=== PATIENT | male | born 1975 | race Caucasian/White ===

== ENCOUNTER → 2016-07-10 | Outpatient (CLI) | payer MEDICAID ==
[2016-07-10 09:15] LABS: HEMATOCRIT 45.6 % (37.9-51.0); HEMOGLOBIN 15.2 g/dL (13.5-17.0); MEAN CORPUSCULAR HEMOGLOBIN 26.9 pg (27.0-33.4); MEAN CORPUSCULAR HGB CONC 33.4 g/dL (32.0-36.0); MEAN CORPUSCULAR VOLUME 81 fl (80-97); RED BLOOD COUNT 5.65 10^6/uL (4.35-5.55); RED CELL DISTRIBUTION WIDTH 14.7 % (11.5-14.0); WHITE BLOOD COUNT 7.8 10^3/uL (4.0-10.5)
[2016-07-10 09:39] LABS: ALANINE AMINOTRANSFERASE 43 U/L (21-72); ALBUMIN 4.7 g/dL (3.5-5.0); ALKALINE PHOSPHATASE 79 U/L (38-126); ASPARTATE AMINO TRANSFERASE 21 U/L (17-59); BILIRUBIN,TOTAL 0.8 mg/dL (0.2-1.3); CHOLESTEROL 254.18 mg/dL (0-200); Direct HDL 51 mg/dL (>40); MAGNESIUM 2.2 mg/dL (1.6-2.3); TOTAL PROTEIN 7.6 g/dL (6.3-8.2); TRIGLYCERIDES 158 mg/dL (<150)
[2016-07-10 09:44] LABS: ANION GAP 15 (5-19); BLOOD UREA NITROGEN 14 mg/dL (7-20); CARBON DIOXIDE 26 mmol/L (22-30); CHLORIDE 101 mmol/L (98-107); CREATININE RESULT 1.02 mg/dL (0.52-1.25); GLUCOSE 84 mg/dL (75-110); POTASSIUM 4.3 mmol/L (3.6-5.0); SODIUM 141.9 mmol/L (137-145)
[2016-07-10 09:51] LABS: DIRECT LDL 183 mg/dL (<100)
[2016-07-10 09:55] LABS: VLDL CHOLESTEROL 31.6 mg/dL (10-31)
== END ==
LOC: OD 08:15
PROVIDERS: ATTEND Internal Medicine Cardiovascular Disease
DX: I48.0 Paroxysmal atrial fibrillation (principal); R00.2 Palpitations; E66.9 Obesity, unspecified; Z79.899 Other long term (current) drug therapy
CPT/HCPCS: 36415; 80048; 80061; 80076; 83036; 83735; 84443; 85027

== ENCOUNTER → 2016-12-24 | Outpatient (CLI) | payer MEDICAID ==
--- NOTE | 2016-12-26 08:34 | RADIOLOGY REPORT ---
STRESS TEST REPORT [id number] ROOM#: DATE OF SERVICE: 12/24/2016 AGE: 41Y ORDER#: [id number] REFERRING MD: DANIELLA GUZMAN M.D. INDICATION: Paroxysmal atrial fibrillation, abnormal EKG treadmill stress test. CLINICAL HISTORY: This 41-year-old male patient with no known coronary artery disease but has history of paroxysmal atrial fibrillation and recent abnormal EKG stress test with cardiac risk factors and hypertension. Currently symptomatology includes palpitations. PROCEDURE PERFORMED: Rest/stress single-isotope Cardiolite SPECT imaging with exercise stress and gated SPECT imaging. REPORT The patient performed 10 minutes of exercise using a standard Markie protocol completing 8 minutes and an estimated work load of 9 METs. The resting heart rate was almost 70 BPM and maximum achieved heart rate was 150 BPM. Resting blood pressure was 127/76 and blood pressure at peak exercise was 204/58. Resting 12-lead EKG showed normal sinus rhythm 73 BPM, IVCD, normal ST segments. A 12-lead EKG showed no ST depressions. The patient had no symptoms of shortness of breath, but no chest pains. Myocardial perfusion imaging was performed at rest 60 minutes following injection of 15.47 mCi of Cardiolite. At peak exercise, the patient was injected with 45.2 mCi of Cardiolite and exercise continued for 1 more minute. Gated post-stress tomographic imaging was performed 60 minutes after stress. FINDINGS: The overall quality of the study is fair. This is due to extra cardiac uptake in the left lobe of the liver superimposed on the inferior wall of the left ventricle only on the rest images. The left ventricular cavity is noted to be normal in both the rest and stress studies. There is no evidence of abnormal transient ischemic dilatation of the left ventricle. The TID ratio was 0.93 and normal. SPECT images showed no evidence of exercise-induced reversible ischemia and no fixed perfusion defects. Gated SPECT imaging showed normal motion contraction of all LV segments. The left ventricular ejection fraction is calculated to be 53%. IMPRESSION: Myocardial perfusion imaging is normal. There is no exercise-induced paroxysmal atrial fibrillation or nonsustained ventricular tachycardia, only rare PVCs were seen during exercise at peak exercise. There is no reversible ischemia and no fixed perfusion defects. Overall left ventricular systolic function was normal with EF at 53%. No regional wall motion abnormalities seen. No prior study for comparison. INTERPRETING PHYSICIAN: DANIELLA GUZMAN M.D. /: [id number] TT: 0226 ID: [id number] /: [id number] TD: [id number] JOB: [id number] cc:DANIELLA GUZMAN M.D. > MTDD
== END ==
LOC: RAD 06:05
PROVIDERS: ATTEND Internal Medicine Cardiovascular Disease
DX: R00.2 Palpitations (principal)
CPT/HCPCS: 93017; 78452; A9500; Q9969

== ENCOUNTER 2017-02-08 01:26 | Emergency (ER) | payer MEDICAID ==
[2017-02-08 01:45] VITALS: BP 143/83
--- NOTE | 2017-02-08 09:49 | EKG REPORT ---
SEVERITY:- NORMAL ECG - SINUS RHYTHM NON PROGRESSION OF R WAVE ANT CHEST LEADS : Confirmed by: Drea Fitch 08-Feb-2017 09:49:11
== END 2017-02-08 01:50 | disposition left against medical advice (07) ==
LOC: ER 01:26
DX: Z53.9 Procedure and treatment not carried out, unspecified reason (principal); R07.9 Chest pain, unspecified
CPT/HCPCS: 93005; 93010

== ENCOUNTER 2017-05-06 23:21 | Emergency (ER) | payer MEDICAID ==
[2017-05-06] MEDS ORDERED: DILTIAZEM HCL/D5W 125 MG/125 ML RTUINJ IV PRN (23:51)
[2017-05-06] MEDS ORDERED: DILTIAZEM HCL INJ 25 MG/5 ML VIAL IV ONE (23:51)
--- NOTE | 2017-05-06 23:56 | ER Document Report ---
ED General - General Chief Complaint: Palpitations Stated Complaint: CHEST PAIN Time Seen by Provider: 05/06/17 23:51 Notes: Patient is a 42-year-old male who presents with complaint of onset of atrial fibrillation. He has had intermittent atrial fibrillation since he was teenager. He is not on any blood thinning medications. He is followed by Dr. Stratton. He did not denies any true chest pain. He says he has just slight tightness because his heart is moving fast. No history of coronary disease. His negative stress test this year. No fevers. No vomiting. No diarrhea. No other complaints at this time. No recent changes in medications. He took his lisinopril and Cardizem shortly before coming into the ER. He felt his heart racing just over an hour ago. TRAVEL OUTSIDE OF THE [place] IN LAST 30 DAYS: No Past Medical History - Social History Smoking Status: Never Smoker Frequency of alcohol use: None Drug Abuse: None Family History: Reviewed & Not Pertinent Renal/ Medical History: Denies: Hx Peritoneal Dialysis Review of Systems - Review of Systems Notes: My Normal Review Basic REVIEW OF SYSTEMS: CONSTITUTIONAL : Denies fever, chills, or sweats. Denies recent illness. EENT: Denies eye, ear, throat, or mouth pain or symptoms. Denies nasal or sinus congestion. CARDIOVASCULAR: atrial fibrillation RESPIRATORY: Denies cough, cold, or chest congestion. Denies shortness of breath, difficulty breathing, or wheezing. GASTROINTESTINAL: Denies abdominal pain. Denies nausea, vomiting, or diarrhea. Denies constipation. Last BM: GENITOURINARY: Denies difficulty urinating, painful urination, burning, frequency, or blood in urine. MUSCULOSKELETAL: Denies neck or back pain or joint pain or swelling. SKIN: Denies rash or skin lesions. NEUROLOGICAL: Denies altered mental status or loss of consciousness. Denies headache. Denies weakness or paralysis or loss of use of either side. Denies problems with gait or speech. Denies sensory or motor loss. ALL OTHER SYSTEMS REVIEWED AND NEGATIVE. Physical Exam - Vital signs Vitals: Temp Resp BP 99.1 F 20 182/117 H 05/06/17 23:46 05/06/17 23:46 05/06/17 23:46 - Notes Notes: General Appearance: Well nourished, alert, cooperative, no acute distress, no obvious discomfort. Well-appearing Vitals: reviewed, See vital signs table. Head: no swelling or tenderness to the head Eyes: PERRL, EOMI, Conjuctiva clear Mouth: No decreasd moisture Lungs: No wheezing, No rales, No rhonci, No accessory muscle use, good air exchange bilaterally. Heart: Rapid rate, Irregular rythm, No murmur, no rub Abdomen: Normal BS, soft, No rigidity, No abdominal tenderness, No guarding, no rebound, no abdominal masses, no organomegaly Extremities: strength 5/5 in all extremities, good pulses in all extremities, no swelling or tenderness in the extremities, no edema. Skin: warm, dry, appropriate color, no rash Neuro: speech clear, oriented x 3, normal affect, responds appropriately to questions. Course - Re-evaluation Re-evalutation: 05/07/17 01:56 EKG #1 is reviewed and interpreted by me. EKG shows atrial fibrillation with rate of [address] segment elevation or depression. No ischemic T-wave inversions. Pure interval, QRS duration, QTc intervals are within normal range. Old EKG for comparison is from February 08, 2017. EKG #2 is reviewed and interpreted by me. EKG shows normal sinus rhythm with rate of [address] segment elevation or depression. No ischemic T-wave inversions. Pure interval, QRS duration, QTc intervals are within normal range. 05/07/17 02:02 Patient's atrial fibrillation resolved with the Cardizem bolus. Drip was stopped. Patient was watched for another hour. He had no recurrence of atrial fibrillation. He has no chest pain and looks well. Laboratory evaluation is unremarkable. Patient feels well and looks well. Patient will be discharged home. Has no signs of stroke. No focal neurologic deficits. Dictation of this chart was performed using voice recognition software; therefore, there may be some unintended grammatical errors. - Vital Signs Vital signs: Temp Pulse Resp BP Pulse Ox 99.1 F 20 182/117 H 05/06/17 23:46 05/06/17 23:46 05/06/17 23:46 - Laboratory Result Diagrams: 05/07/17 00:04 05/07/17 00:04 Laboratory results interpreted by me: 05/07/17 05/07/17 05/07/17 00:04 00:04 00:04 RBC 5.61 H RDW 14.7 H Glucose 139 H Calcium 10.6 H TSH 4.70 H Discharge - Discharge Clinical Impression: Atrial fibrillation Qualifiers: Atrial fibrillation type: paroxysmal Qualified Code(s): I48.0 - Paroxysmal atrial fibrillation Condition: Good Disposition: HOME, SELF-CARE Additional Instructions: Your atrial fibrillation is resolved. Please take medications as prescribed. Please avoid all caffeinated beverages. Return to the ER immediately if you have chest pain, difficulty breathing, rapid heart rate, or feel unwell. Dictation of this chart was performed using voice recognition software; therefore, there may be some unintended grammatical errors.
[2017-05-07 00:22] LABS: ABSOLUTE BASOPHILS # (AUTO) 0.1 10^3/uL (0.0-0.2); ABSOLUTE EOSINOPHILS # (AUTO) 0.3 10^3/uL (0.0-0.6); ABSOLUTE LYMPHOCYTES (AUTO) 3.7 10^3/uL (0.5-4.7); ABSOLUTE MONOCYTES (AUTO) 0.5 10^3/uL (0.1-1.4); ABSOLUTE NEUT (AUTO) 5.6 10^3/uL (1.7-8.2); BASOPHILS % (AUTO) 0.6 % (0-2); EOSINOPHILS % (AUTO) 2.6 % (0-6); HEMATOCRIT 46.1 % (37.9-51.0); HEMOGLOBIN 15.6 g/dL (13.5-17.0); LYMPHOCYTES % (AUTO) 36.7 % (13-45); MEAN CORPUSCULAR HEMOGLOBIN 27.8 pg (27.0-33.4); MEAN CORPUSCULAR HGB CONC 33.8 g/dL (32.0-36.0); MEAN CORPUSCULAR VOLUME 82 fl (80-97); MONOCYTES % (AUTO) 4.9 % (3-13); PLATELET COUNT 338 10^3/uL (150-450); RED BLOOD COUNT 5.61 10^6/uL (4.35-5.55); RED CELL DISTRIBUTION WIDTH 14.7 % (11.5-14.0); SEGMENTED NEUTROPHILS % (AUTO) 55.2 % (42-78); TOTAL CELLS COUNTED % (AUTO) 100 %; WHITE BLOOD COUNT 10.1 10^3/uL (4.0-10.5)
[2017-05-07 00:36] LABS: ALANINE AMINOTRANSFERASE 36 U/L (21-72); ALBUMIN 4.7 g/dL (3.5-5.0); ALKALINE PHOSPHATASE 86 U/L (38-126); ANION GAP 15 (5-19); ASPARTATE AMINO TRANSFERASE 23 U/L (17-59); BILIRUBIN,DIRECT 0.3 mg/dL (0.0-0.4); BILIRUBIN,TOTAL 0.3 mg/dL (0.2-1.3); BLOOD UREA NITROGEN 19 mg/dL (7-20); CALCIUM 10.6 mg/dL (8.4-10.2); CARBON DIOXIDE 25 mmol/L (22-30); CHLORIDE 103 mmol/L (98-107); GLUCOSE 139 mg/dL (75-110); POTASSIUM 4.1 mmol/L (3.6-5.0); SODIUM 142.6 mmol/L (137-145); TOTAL PROTEIN 7.8 g/dL (6.3-8.2)
--- NOTE | 2017-05-07 01:00 | RADIOLOGY REPORT (SQ) ---
EXAM DESCRIPTION: CHEST SINGLE VIEW CLINICAL HISTORY: a.fib COMPARISON: None. FINDINGS: Single frontal view of the chest. The cardiomediastinal silhouette has normal size and contour. No consolidation, pneumothorax, or pleural effusion. No displaced rib fractures identified. Upper abdominal soft tissues are unremarkable. Leads overlie the chest. IMPRESSION: 1. No acute pulmonary process identified.
[2017-05-07 02:07] VITALS: BP 133/82
--- NOTE | 2017-05-08 07:57 | EKG REPORT ---
SEVERITY:- NORMAL ECG - SINUS RHYTHM : Confirmed by: Etta Santiago MD 08-May-2017 07:55:36
--- NOTE | 2017-05-08 07:57 | EKG REPORT ---
SEVERITY:- ABNORMAL ECG - SINUS TACHYCARDIA LEFT AXIS DEVIATION BORDERLINE ST DEPRESSION, DIFFUSE LEADS BORDERLINE PROLONGED QT INTERVAL : Confirmed by: Etta Santiago MD 08-May-2017 07:55:41
== END 2017-05-07 02:12 | disposition home or self-care (01) ==
LOC: ER 23:21
DX: I48.0 Paroxysmal atrial fibrillation (principal); R00.2 Palpitations; R07.9 Chest pain, unspecified
CPT/HCPCS: 93005 ×2; 96376; 99285; 96374; 36415; 83735; 84443; 85025; 80053; 84484; 71010; 93010 ×2; J3490 ×2

== ENCOUNTER 2017-09-18 20:36 | Emergency (ER) | payer MEDICAID ==
[2017-09-18] MEDS ORDERED: ASPIRIN 81 MG TABLET, CHEWABLE PO ONE (20:40)
--- NOTE | 2017-09-18 21:03 | ER Document Report ---
ED Medical Screen (RME) - General Chief Complaint: Chest Pain Stated Complaint: CHEST PAIN Time Seen by Provider: 09/18/17 21:02 Notes: Patient is a 42-year-old male, past medical history paroxysmal atrial fibrillation, presents after he felt extra beats and that his heart was racing again. Takes metoprolol and lisinopril. No blood thinners. PE: Regular rhythm. NAD. CTAB I have greeted and performed a rapid initial assessment of this patient. A comprehensive ED assessment and evaluation of the patient, analysis of test results and completion of the medical decision making process will be conducted by additional ED providers. TRAVEL OUTSIDE OF THE [place] IN LAST 30 DAYS: No - Related Data Allergies/Adverse Reactions: oxycodone Allergy (Verified 09/18/17 20:38) Past Medical History - Social History Chew tobacco use (# tins/day): No Frequency of alcohol use: Rare Drug Abuse: None - Past Medical History Cardiac Medical History: Reports: Hx Atrial Fibrillation, Hx Hypertension Renal/ Medical History: Denies: Hx Peritoneal Dialysis
--- NOTE | 2017-09-18 21:49 | RADIOLOGY REPORT (SQ) ---
EXAM DESCRIPTION: CHEST SINGLE VIEW COMPLETED DATE/TIME: 09/18/2017 9:25 pm REASON FOR STUDY: chest pain COMPARISON: 05/07/2017 EXAM PARAMETERS: NUMBER OF VIEWS: One view. TECHNIQUE: Single frontal radiographic view of the chest acquired. RADIATION DOSE: NA LIMITATIONS: None. FINDINGS: LUNGS AND PLEURA: No opacities, masses or pneumothorax. No pleural effusion. MEDIASTINUM AND HILAR STRUCTURES: No masses. Contour normal. HEART AND VASCULAR STRUCTURES: Heart normal in size. Normal vasculature. BONES: No acute findings. HARDWARE: None in the chest. OTHER: No other significant finding. IMPRESSION: NO ACUTE RADIOGRAPHIC FINDING IN THE CHEST. TECHNICAL DOCUMENTATION: JOB ID: [id number] [employer]- All Rights Reserved Reading location - IP/workstation name: [email or web address]
--- NOTE | 2017-09-18 22:09 | ER Document Report ---
ED General - General Chief Complaint: Chest Pain Stated Complaint: CHEST PAIN Time Seen by Provider: 09/18/17 21:02 Notes: Patient is a pleasant 42-year-old male who presents with complaint of feeling that he was in atrial fibrillation. He says after he arrived to the ER he felt to go away. Has not had any recurrence of A. fib since then. He says he had some very mild chest pain which she always has whenever he goes into atrial fibrillation. He has had proximal A. fib since he was a teenager. He is followed by sustainability officer, Dr. Stratton. He is currently not on blood thinning medications as he says his sustainability officer has told him based on his age and risk factors the benefits do not outweigh the risk. He currently feels well and is requesting not any further workup and wants to leave. Denies any recent changes in medications. He denies any recent illnesses. TRAVEL OUTSIDE OF THE [place] IN LAST 30 DAYS: No - Related Data Allergies/Adverse Reactions: oxycodone Allergy (Verified 09/18/17 20:38) Past Medical History - Social History Smoking Status: Former Smoker Chew tobacco use (# tins/day): No Frequency of alcohol use: Rare Drug Abuse: None Family History: Reviewed & Not Pertinent Patient has suicidal ideation: No Patient has homicidal ideation: No - Past Medical History Cardiac Medical History: Reports: Hx Atrial Fibrillation, Hx Hypertension Renal/ Medical History: Denies: Hx Peritoneal Dialysis Review of Systems - Review of Systems Notes: My Normal Review Basic REVIEW OF SYSTEMS: CONSTITUTIONAL : Denies fever, chills, or sweats. Denies recent illness. EENT: Denies eye, ear, throat, or mouth pain or symptoms. Denies nasal or sinus congestion. CARDIOVASCULAR: Dictations. Mild chest pain. RESPIRATORY: Denies cough, cold, or chest congestion. Denies shortness of breath, difficulty breathing, or wheezing. GASTROINTESTINAL: Denies abdominal pain. Denies nausea, vomiting, or diarrhea. Denies constipation. Last BM: MUSCULOSKELETAL: Denies neck or back pain or joint pain or swelling. SKIN: Denies rash or skin lesions. NEUROLOGICAL: Denies altered mental status or loss of consciousness. Denies headache. Denies weakness or paralysis or loss of use of either side. Denies problems with gait or speech. Denies sensory or motor loss. ALL OTHER SYSTEMS REVIEWED AND NEGATIVE. Physical Exam - Vital signs Vitals: Temp Pulse Resp BP Pulse Ox 97.2 F 91 18 180/83 H 99 09/18/17 20:36 09/18/17 20:36 09/18/17 20:36 09/18/17 20:36 09/18/17 20:36 - Notes Notes: General Appearance: Well nourished, alert, cooperative, no acute distress, no obvious discomfort. Well-appearing. Vitals: reviewed, See vital signs table. Eyes: PERRL, EOMI, Conjuctiva clear Mouth: No decreasd moisture Lungs: No wheezing, No rales, No rhonci, No accessory muscle use, good air exchange bilaterally. Heart: Normal rate, Regular rythm, No murmur, no rub Extremities: Equal pulses in upper extremities, no edema. Neuro: speech clear, oriented x 3, normal affect, responds appropriately to questions. Course - Re-evaluation Re-evalutation: 09/18/17 23:12 Shortly after going room talk to the patient I recommend blood work is to check his electrolytes and heart enzymes. Informed him that electrode abnormalities could mean that he will not atrial fibrillation more often and therefore if he has these we should correct them. Patient shows understanding of this but says that he feels great and does not want to stay. He says his presentation today is very typical of what he has had many times in the past. He says this includes the very mild chest pain he had. He says he always has this when his atrial for ablation for starts. He says is no different than what has had the past. He refuses any workup at this time and request to be discharged home. He said he would follow up very close with Dr. Stratton. Agrees to return to ER if he has recurrent palpitations, any chest pain, fevers, or she feels unwell. Patient will be discharged home as he requests but again is strongly encouraged to return to ER if he has any recurrence of his symptoms. Dictation of this chart was performed using voice recognition software; therefore, there may be some unintended grammatical errors. - Vital Signs Vital signs: Temp Pulse Resp BP Pulse Ox 97.2 F 91 15 164/97 H 99 09/18/17 20:36 09/18/17 20:36 09/18/17 21:05 09/18/17 21:05 09/18/17 21:05 - EKG Interpretation by Me Additional EKG results interpreted by me: 09/18/17 22:08 EKG is reviewed and interpreted by me. EKG shows sinus rhythm with occasional PVCs. Rate is approximately [address] segment elevation or depression. No ischemic T-wave inversions. IL interval, QRS duration, QTc intervals are within normal range. Old EKG for comparison is from May 07, 2017. Discharge - Discharge Clinical Impression: Atrial fibrillation Qualifiers: Atrial fibrillation type: paroxysmal Qualified Code(s): I48.0 - Paroxysmal atrial fibrillation Condition: Good Disposition: HOME, SELF-CARE Additional Instructions: Please follow up closely with Dr. Stratton on Friday or Friday. please have a low threshold to return to the ER if you have recurrence of palpitations, any chest pain, any difficulty breathing, or if you feel unwell.
[2017-09-18 22:18] VITALS: BP 164/97
--- NOTE | 2017-09-19 07:44 | EKG REPORT ---
SEVERITY:- ABNORMAL ECG - SINUS RHYTHM VENTRICULAR TRIGEMINY : Confirmed by: Evangelista Stratton MD 19-Sep-2017 07:43:18
== END 2017-09-18 22:19 | disposition home or self-care (01) ==
LOC: ER 20:36
DX: I48.0 Paroxysmal atrial fibrillation (principal); R07.9 Chest pain, unspecified; I10 Essential (primary) hypertension; Z88.6 Allergy status to analgesic agent; Z87.891 Personal history of nicotine dependence
CPT/HCPCS: 71045; 93005; 93010; 99285